=== PATIENT | female | born 1980 | race Two or more races ===

== ENCOUNTER 2018-03-07 18:53 | Emergency (ER) | payer SELFPAY ==
[~2018-03-07] VITALS: Ht 162.6 cm; Wt 56.7 kg
[2018-03-07 18:53] VITALS: BP 114/77
--- NOTE | 2018-03-07 19:11 | NUR ---
seen and evaluated by Dr Calloway and dc home with RX
== END 2018-03-07 19:12 | disposition home or self-care (01) ==
LOC: ER 18:55
DX: L03.116 Cellulitis of left lower limb (principal)
CPT/HCPCS: 99283; A4606; Z7610